=== PATIENT | male | born 1995 | race Caucasian/White ===

== ENCOUNTER 2016-04-23 02:50 | Emergency (ER) | payer BC ==
[~2016-04-23] VITALS: Ht 195.6 cm; Wt 105.1 kg
[2016-04-23 02:50] VITALS: TEMP 36.7; Ht 195.6 cm; Wt 105.1 kg
[2016-04-23 04:46] LABS: CALCIUM 8.4 mg/dl (8.5-10.1); CREATININE 1.1 mg/dl (0.60-1.40)
[2016-04-23 08:00] VITALS: BP 97/66; PULSE 109; O2SAT 94
--- NOTE | 2016-04-23 08:06 | EMERGENCY ROOM VISIT NOTE ---
History First contact with patient: 03:06 Chief Complaint: ALCOHOL OVERDOSE Stated Complaint: ALCOHOL OVERDOSE Nursing Triage Summary: Pt was at the [employer] drinking beer with a couple shots. Pt lost friend, was walking to [facility] and patient was found sleeping in a [place]iz[place] by [facility] apartments. History of Present Illness The patient is a 21 year old male who presents to the Emergency Department via EMS for evaluation of alcohol overdose. The patient was found sleeping [place] the bushes near an apartment complex. The patient admits to drinking alcohol today. He denies any drug use. He denies falls or head injuries. There are unable to find a sober friend, so the patient was brought to the emergency Department for further evaluation and management. The patient takes no daily medications. He reports no pain rating his discomfort a 0/10. Review of Systems A complete 10-point Review of Systems was discussed with the patient, with pertinent positives and negatives listed in the History of Present Illness. All remaining Review of Systems questions can be considered negative unless otherwise specified. Social History Smoking Status: Never Smoker Alcohol Use: occasionally Marital Status: single Housing Status: lives with roommate Occupation Status: [employer] student Current/Historical Medications No Active Prescriptions or Reported Meds Allergies Coded Allergies: No Known Allergies (Unverified , 04/23/16) Physical Exam Vital Signs Date Time Temp Pulse Resp B/P Pulse Ox O2 Delivery O2 Flow Rate FiO2 04/23/16 08:00 109 18 97/66 94 04/23/16 06:55 53 04/23/16 06:04 95 16 98 Room Air 04/23/16 05:34 73 15 95 04/23/16 05:29 110/68 04/23/16 05:04 74 14 95 04/23/16 05:01 98 16 123/71 97 Room Air 04/23/16 04:59 114/73 04/23/16 04:56 123/71 04/23/16 04:34 102 20 97 04/23/16 04:29 109/67 04/23/16 04:04 73 16 95 04/23/16 03:59 124/51 04/23/16 03:50 Room Air 04/23/16 03:50 76 19 95 Room Air 04/23/16 03:29 123/56 04/23/16 03:20 78 16 96 04/23/16 03:08 90 04/23/16 03:00 155/95 04/23/16 02:50 36.7 96 18 155/95 94 Room Air Pain Rating (0-10): 0 Physical Exam VITALS - Vitals are noted on the nurse's note and reviewed by myself. Vital signs stable. GENERAL -21-year-old male, in no acute distress, nondiaphoretic, well-developed well-nourished. The patient is visibly intoxicated. SKIN - The skin was without obvious lacerations, abrasions, or rashes. There is no tenting of the skin. Capillary reflex less than 2 seconds. HEENT - Normocephalic, atraumatic. PERRLA. EOMI. Conjunctiva with mild injection without icterus. Tympanic membranes without erythema or effusion bilaterally no hemotympanum. External auditory canals are clear. Nares patent bilaterally. No epistaxis. Oropharynx without erythema or exudate. Uvula midline. Oral mucosal moist. No lymphadenopathy. Neck is supple without cervical spine tenderness. HEART - Regular rate and rhythm without murmurs gallops or rubs. Peripheral pulses 2+. LUNGS - Clear to auscultation bilaterally without wheezes, rales or rhonchi. ABDOMEN - Positive bowel sounds x 4. Normal tympanic percussion. Soft, nontender, without masses or organomegaly. MUSCULOSKELETAL - Gross motor function of the upper and lower extremities intact. NEUROLOGIC - The patient is visibly intoxicated. Medical Decision & Procedures Laboratory Results 04/23/16 04:15 Test 04/23/16 04:15 Anion Gap 9.0 mmol/L (3-11) Est Creatinine Clear Calc Drug Dose 133.9 ml/min Estimated GFR () 110.6 Estimated GFR (Non- 95.5 BUN/Creatinine Ratio 11.0 (10-20) Calcium Level 8.4 mg/dl (8.5-10.1) Ethyl Alcohol mg/dL 203.0 mg/dl (0-3) Procedure Patient was placed on the stenographic court reporter and monitored throughout the entire extent of their stay. In addition, the patient's pulse oximetry was monitored throughout the entire stay. Any abnormalities or aberrancies were addressed appropriately. ED Course Patient was seen and evaluated by myself. Aspiration precautions were instituted and the patient was placed in the prone position. The patient was placed on the stenographic court reporter and pulse oximetry was monitored throughout the entire stay in the emergency department. Labs were collected. Patient's medical alcohol was found to be elevated at 203.0 mg/dL. Patient was monitored in the emergency department for greater than 6 hours. The patient eventually was awoken and educated on today's visit. They were encouraged to refrain from heavy drinking. All labs and diagnostics were reviewed. Patient was discharged home in good condition. Medical Decision Given the patient's presentation and exam findings, I did elect to perform the above-mentioned workup. The patient presents today visibly intoxicated. The patient was monitored constantly throughout entire stay in the emergency setting. Medical alcohol level was elevated significantly at 203.0 mg/dL. After a lengthy stay in the Emergency Department the patient was deemed appropriate for discharge. Patient was discharged home in good condition. In the evaluation and treatment of this patient, the following differential diagnoses were considered: Hypoglycemia, Barbiturate Toxicity, Benzodiazepine Toxicity, Depression and Suicidality, Diabetic Ketoacidosis, Encephalitis, Ethylene Glycol Toxicity, Meningitis, Metabolic Acidosis, Opioid Toxicity, CVA, TIA, Intracranial Abnormality, Acute Psychosis, Amongst Others. Impression Primary Impression: Alcohol overdose Departure Information Dispostion Home / Self-Care Condition GOOD Prescriptions No Active Prescriptions or Reported Meds Referrals No Doctor, Assigned (PCP) Patient Instructions ED Overdose Alcohol, My [facility] Additional Instructions You have been seen in the emergency department today for an alcohol overdose. For pain control, you can use the following [id number] medicines (if >12 yo): - Regular strength (325mg/tab) Tylenol (acetaminophen) 2 tabs every 4-6 hours as needed. Do not exceed 12 tablets in a 24 hour period. Avoid taking more than 4 grams (4000 mg) of Tylenol per day. This includes any other sources of acetaminophen you may take on a regular basis. - Regular strength (200 mg/tab) Advil (ibuprofen) 1-2 tabs every 4-6 hours as needed. Do not exceed a dose of 3200 mg per day. Please do not drive or operate heavy machinery for the remainder of the day. Return for any changing or worsening symptoms. Problem Qualifiers Primary Impression: Alcohol overdose Encounter type: initial encounter Injury intent: accidental or unintentional Qualified Codes: T51.91XA - Toxic effect of unspecified alcohol , accidental (unintentional), initial encounter
== END 2016-04-23 08:25 | disposition home or self-care (01) ==
LOC: EDBD 02:50 → C.EDA 02:51
DX: T51.91XA Toxic effect of unspecified alcohol, accidental (unintentional), initial encounter (principal); X58.XXXA Exposure to other specified factors, initial encounter